=== PATIENT | female | born 1945 | race Caucasian/White ===

== ENCOUNTER 2016-07-18 09:36 | Emergency (ER) | payer OTHER ==
[2016-07-18 09:43] VITALS: TEMP 97.3
--- NOTE | 2016-07-18 09:55 | EDPHY ---
H & P Time Seen by Provider: 07/18/16 09:49 HPI/ROS: CHIEF COMPLAINT: Chest pain HISTORY OF PRESENT ILLNESS: This 71-year-old woman had chest pain in 2006 and had an LAD stent placed at [facility]. She awakened this morning when it was still dark with left-sided chest pain which did not radiate and not associated with nausea or shortness of breath which lasted 10 minutes and then resolved. After she developed a left-sided headache which is still present. Not worse with light or noise, not associated with nausea vomiting or being off balance. No neck pain or vertigo. Not thunderclap in onset or worst of life. The initial nursing note mentions that she was unsteady or confused but the daughter states that she was just joking with her mother that she does not appear to be confused at all. REVIEW OF SYSTEMS: Eye: no change in vision or double vision ENT: no sore throat Cardiac: No syncope Pulmonary: no cough or SOB Abdomen: no vomiting, diarrhea, abdominal pain Musculoskeletal: no back pain or neck pain Skin: no rash Neuro: Normal speech and not ataxic. No weakness or numbness in extremities. Constitutional: no fever : no urinary symptoms A comprehensive 10 point review of systems is otherwise negative aside from elements mentioned in the history of present illness. PAST MEDICAL HISTORY: Coronary disease with LAD stenting as noted above, hyperlipidemia. Recently increased statin 2 weeks ago. Social history: Lives in [place], here with her daughter, nonsmoker. General Appearance: Alert and conversant, cooperative. Eyes: No scleral icterus. Extraocular motion intact. ENT, Mouth: Normal mucous membranes. No facial swelling or tenderness. Respiratory: Normal respiratory effort, breath sounds equal, lungs are clear to auscultation. Cardiovascular: Regular rate and rhythm. Gastrointestinal: Abdomen is soft and non tender. Neurological: Alert and oriented x3. Normally conversant. Face symmetric, normal movement and sensation in all extremities. Not ataxic, able to walk unassisted, negative Romberg, no pronator drift, normal [id number] bilaterally Skin: Warm and dry, no rashes. Musculoskeletal: No peripheral edema and no joint swelling. Normal range of motion of the neck. Psychiatric: Not agitated. Emergency Department course/MDM: Noncontrast head CT, EKG and labs to include troponin, chest x-ray, requested comparison EKG from [facility]. Minimal headache now, patient declined pain medication except for acetaminophen. Patient has no chest pain in the emergency department. No chest pain since the sun came up this morning. Patient's clinical presentation and her EKG from today as well as from previous personally reviewed with Dr. Cali Linder from Cardiology. His recommendation is to perform echocardiogram and if normal discharge the patient for follow-up as an outpatient with [facility]. Normal echo per Rodo Linder at 1243, recommends DC. 1145: Results discussed in detail with patient and daughter. Smoking Status: Never smoked Constitutional: Initial Vital Signs Temperature (C) 36.3 C 07/18/16 09:37 Heart Rate 66 07/18/16 09:37 Respiratory Rate 16 07/18/16 09:37 Blood Pressure 128/77 H 07/18/16 09:37 O2 Sat (%) 97 07/18/16 09:37 O2 Delivery Mode Room Air Allergies/Adverse Reactions: amoxicillin Allergy (Verified 07/18/16 09:39) Sulfa (Sulfonamide Antibiotics) Allergy (Verified 07/18/16 09:39) Home Medications: Medication Instructions Recorded Amlodipine Besylate 07/18/16 Aspirin EC 81 mg (*) 07/18/16 Atorvastatin Calcium 07/18/16 Lexapro 07/18/16 Medical Decision Making - Diagnostics EKG Interpretation: 12-lead EKG interpreted by me; official reading is in trace master. My interpretation is sinus rhythm, Q-waves in V1 and V2, new since 01/29/2012 EKG from [facility]. Imaging: Normal noncontrast head CT per Dr. Gaspar at 1044; personally reviewed by myself. Differential Diagnosis: Differential diagnosis considered for chest pain including but not limited to myocardial ischemia, aortic dissection, pericarditis, pulmonary embolus, chest wall pain, pleural inflammation and pulmonary infectious causes. Consult/Admit Bed Type: White 1119am, reviewed today's and old EKG - Data Points Laboratory Results: Laboratory Results 07/18/16 10:30 07/18/16 10:30 07/18/16 07/18/16 10:30 10:30 WBC 5.74 10^3/uL 10^3/uL (3.80-9.50) RBC 4.76 10^6/uL 10^6/uL (4.18-5.33) Hgb 14.5 g/dL g/dL (12.6-16.3) Hct 43.3 % % (38.0-47.0) MCV 91.0 fL fL (81.5-99.8) MCH 30.5 pg pg (27.9-34.1) MCHC 33.5 g/dL g/dL (32.4-36.7) RDW 12.1 % % (11.5-15.2) Plt Count 182 10^3/uL 10^3/uL (150-400) MPV 10.3 fL fL (8.7-11.7) Neut % (Auto) 61.0 % % (39.3-74.2) Lymph % (Auto) 27.0 % % (15.0-45.0) Banks % (Auto) 7.8 % % (4.5-13.0) Eos % (Auto) 3.1 % % (0.6-7.6) Baso % (Auto) 0.9 % % (0.3-1.7) Nucleat RBC Rel Count 0.0 % % (0.0-0.2) Absolute Neuts (auto) 3.50 10^3/uL 10^3/uL (1.70-6.50) Absolute Lymphs (auto) 1.55 10^3/uL 10^3/uL (1.00-3.00) Absolute Monos (auto) 0.45 10^3/uL 10^3/uL (0.30-0.80) Absolute Eos (auto) 0.18 10^3/uL 10^3/uL (0.03-0.40) Absolute Basos (auto) 0.05 10^3/uL 10^3/uL (0.02-0.10) Absolute Nucleated RBC 0.00 10^3/uL 10^3/uL (0-0.01) Immature Gran % 0.2 % % (0.0-1.1) Immature Gran # 0.01 10^3/uL 10^3/uL (0.00-0.10) Sodium 141 mEq/L mEq/L (134-144) Potassium 4.2 mEq/L mEq/L (3.5-5.2) Chloride 108 mEq/L mEq/L (97-110) Carbon Dioxide 25 mEq/l mEq/l (22-31) Anion Gap 8 mEq/L mEq/L (8-16) BUN 18 mg/dL mg/dL (7-23) Creatinine 0.8 mg/dL mg/dL (0.6-1.0) Estimated GFR > 60 Glucose 89 mg/dL mg/dL (70-100) Calcium 9.6 mg/dL mg/dL (8.5-10.4) Troponin I < 0.012 ng/mL ng/mL (0-0.034) Medications Given: Discontinued Medications Acetaminophen (Tylenol) 650 mg PO EDNOW ONE Stop: 07/18/16 10:08 Last Admin: 07/18/16 10:34 Dose: 650 mg Aspirin (Aspirin) 324 mg PO EDNOW ONE Stop: 07/18/16 10:08 Last Admin: 07/18/16 10:34 Dose: 324 mg Departure - Departure Disposition: Home, Routine, Self-Care Clinical Impression: Chest pain Qualifiers: Chest pain type: unspecified Qualified Code(s): R07.9 - Chest pain, unspecified Headache Qualifiers: Headache type: unspecified Headache chronicity pattern: acute headache Intractability: not intractable Qualified Code(s): R51 - Headache Condition: Good Instructions: Chest Pain (ED), Acute Headache (ED) Referrals: GIOVANA QUIROS [Other] - As per Instructions
--- NOTE | 2016-07-18 09:56 | CPEKG ---
Heart Rate: 60 RR Interval: 1000 P-R Interval: 176 QRSD Interval: 80 QT Interval: 448 QTC Interval: 448 P Moclips: 53 QRS Moclips: 41 T Wave Moclips: 56 EKG Severity - ABNORMAL ECG - EKG Impression: SINUS RHYTHM EKG Impression: PROBABLE ANTEROSEPTAL INFARCT, AGE INDETERM Electronically Signed By: Michael Mariee 18-Jul-2016 12:06:51
[2016-07-18] MEDS ORDERED: ACETAMINOPHEN 325 MG TAB PO ONE (10:07)
[2016-07-18] MEDS ORDERED: ASPIRIN 81 MG CHEWABLE TAB PO ONE (10:07)
[2016-07-18 10:37] LABS: % IMMATURE GRANULYOCYTES 0.2 % (0.0-1.1); ABSOLUTE IMMATURE GRANULOCYTES 0.01 10^3/uL (0.00-0.10); ADD DIFF? NO; ADD MORPH? NO; ADD SCAN? NO; ATYPICAL LYMPHOCYTE FLAG 10 (0-99); FRAGMENT RBC FLAG 0 (0-99); HEMATOCRIT 43.3 % (38.0-47.0); HEMOGLOBIN 14.5 g/dL (12.6-16.3); LEFT SHIFT FLG 0 (0-99); LIPEMIA HEMOLYSIS FLAG 80 (0-99); MEAN CELL HEMOGLOBIN 30.5 pg (27.9-34.1); MEAN CELL HEMOGLOBIN CONCENTR. 33.5 g/dL (32.4-36.7); MEAN PLATELET VOLUME 10.3 fL (8.7-11.7); PLATELET CLUMPS FLAG 20 (0-99); PLATELET COUNT 182 10^3/uL (150-400); RED BLOOD CELL COUNT 4.76 10^6/uL (4.18-5.33); RED CELL DISTRIBUTION WIDTH 12.1 % (11.5-15.2)
[2016-07-18 10:54] LABS: ANION GAP 8 mEq/L (8-16); CALCIUM 9.6 mg/dL (8.5-10.4); CARBON DIOXIDE 25 mEq/l (22-31); CHLORIDE 108 mEq/L (97-110); CREATININE 0.8 mg/dL (0.6-1.0); GLOMERULAR FILTRATION RATE > 60; GLUCOSE 89 mg/dL (70-100); POTASSIUM 4.2 mEq/L (3.5-5.2); SODIUM 141 mEq/L (134-144)
[2016-07-18 11:06] LABS: TROPONIN I < 0.012 ng/mL (0-0.034)
[2016-07-18 12:35] VITALS: PULSE 58
[2016-07-18 12:57] VITALS: BP 120/70; RESP 18; O2SAT 96
--- NOTE | 2016-07-18 14:27 | ECHO ---
[id number] + + [address] : : [place] [address] : : [phone] + + Adult Echocardiographic Report + + :Name: NIOCLE RUBIN RStudy Date: 07/18/2016 11:59 AM : : Hospital Admission Number: [id number] ocation: ER: :: 1945 Gender: Female Height: 6 3 in : :Age: 71 yrs Race: WH Weight: 1 08 lb : :Reason For Study: Chest pain : : BSA: 1.5 meters2 : :History: Stent/breast implants : + + MMode/2D Measurements \T\ Calculations LVIDd: 4.1 cm EDV(Teich): Ao root diam: LVLd ap4: 7.1 cm 74.2 ml 3.4 cm EDV(MOD-sp4): 39.0 ml LVLs ap4: 6.5 cm ESV(MOD-sp4): 15.0 ml EF(MOD-sp4): 61.5 % SV(MOD-sp4): 24.0 ml Normal Measurement Values: + + :LVIDd (3.5-5.7cm) IVSd (0.6-1.1cm) LVPWd (0.6-1.1cm) Aortic Root (2.0-3.7cm)Left Atrium (1.5-4.0cm): :LV Vol(d) (76-115ml) LV Vol(s) (29-48ml) Ejec Fraction (50-65%)PV Bradley (0.6- 1.2m/s) TV Bradley (0.4-1.0m/s) : :MV E Bradley (0.8-1.0m/s)MV A Bradley (0.3-1.0m/s)LVOT Bradley (0.7-1.2m/s) Asc Ao Bradley ( 0.9-1.8m/s) : + + Doppler Measurements \T\ Calculations MV E max bradley: 54.8 cm/sec Ao V2 max: 138.0 cm/sec TR max bradley: 212.0 cm/sec MV A max bradley: 98.2 cm/sec Ao max P.6 mmHg TR max P.0 mmHg MV E/A: 0.56 Ao mean P.0 mmHg RAP systole: 5.0 mmHg Ao V2 mean: 92.6 cm/sec RVSP(TR): 23.0 mmHg Ao V2 VTI: 29.8 cm Left Ventricle The left ventricle is normal in size. There is normal left ventricular wall thickness. Left ventricular systolic function is normal. Ejection Fraction = 65-70%. There is Doppler evidence for diastolic dysfunction. No regional wall motion abnormalities noted. Right Ventricle The right ventricle is normal in size and function. Atria The left atrial size is normal. Right atrial size is normal. The interatrial septum is intact with no evidence for an atrial septal defect. Mitral Valve The mitral valve is normal in structure and function. There is no evidence of mitral valve prolapse. There is no mitral valve stenosis. There is no mitral regurgitation noted. Tricuspid Valve Normal tricuspid valve. There is trace to mild tricuspid regurgitation. Aortic Valve The aortic valve is trileaflet. The aortic valve opens well. There is no aortic stenosis. There is no aortic insufficiency. Pulmonic Valve The pulmonic valve is normal in structure and function. There is no pulmonic valvular regurgitation. Great Vessels The aortic root is normal size. Pericardium/Pleural There is no pericardial effusion. Conclusion A complete two-dimensional transthoracic echocardiogram was performed (2D, M-mode, Doppler and color flow Doppler). Normal LV size and wall motion. Left ventricular systolic function is normal. Ejection Fraction = 65-70%. There is Doppler evidence for diastolic dysfunction. Normal appearing cardiac valves. There is trace to mild tricuspid regurgitation. Final Reading Physician: Betsy Flores signed on 07/18/2016 02:26 PM Ordering Physician: GRADY KNAPP Performed By: Audrey Singh RDCS
== END 2016-07-18 12:55 | disposition home or self-care (01) ==
DX: R07.9 Chest pain, unspecified (principal); R51 Headache; I25.10 Atherosclerotic heart disease of native coronary artery without angina pectoris; Z95.5 Presence of coronary angioplasty implant and graft; Z79.82 Long term (current) use of aspirin